=== PATIENT | male | born 1940 | race African-American/Black ===

== ENCOUNTER 2019-05-11 07:49 | Day surgery (SDC) | payer OTHER, BC ==
[2019-05-10 11:38] VITALS: BMI 33.5
[2019-05-11] MEDS ORDERED: ROCURONIUM BROMIDE 50 MG/5 ML SYRINGE ONE (08:13)
[2019-05-11] MEDS ORDERED: LIDOCAINE HCL/PF 2% SDV 5ML VIAL ONE (08:13)
[2019-05-11] MEDS ORDERED: DEXAMETHASONE SOD PHOSPHATE 4 MG/1 ML VIAL ONE (08:13)
[2019-05-11] MEDS ORDERED: EPHEDRINE SULFATE/0.9% NACL/PF 50 MG/10 ML SYRINGE NR ONE (08:13)
[2019-05-11] MEDS ORDERED: PROPOFOL 20 ML ONE (08:14)
[2019-05-11] MEDS ORDERED: MIDAZOLAM HCL 2 MG/2 ML SINGLE DOSE VIAL ONE ×3 (08:14→08:50)
[2019-05-11] MEDS ORDERED: SUCCINYLCHOLINE CHLORIDE 200 MG/10 ML SYRINGE ONE (08:14)
[2019-05-11] MEDS ORDERED: DEXAMETHASONE SOD PHOSPHATE/PF 10 MG/ML SDV ONE (08:17)
[2019-05-11] MEDS ORDERED: BUPIVACAINE HCL/PF 0.5% (5 MG/ML) 30 ML VIAL IJ ONE ×4 (08:18→09:33)
--- NOTE | 2019-05-11 09:02 | HP ---
Admitting History and Physical - Admission Chief Complaint: incisional hernia History of Present Illness: 78 y.o. male presents with incional bulge post robotic prostatectomy - Advance Directives Advance Directives: Yes: Health Care Proxy - Smoking History Smoking history: Former smoker Have you smoked in the past 12 months: No If you are a former smoker, when did you quit?: 1969"s - Alcohol/Substance Use Hx Alcohol Use: No Home Medications - Allergies Allergies/Adverse Reactions: Allergies Allergy/AdvReac Type Severity Reaction Status Date / Time No Known Allergies Allergy Verified 05/11/19 08:17 - Home Medications Home Medications: Ambulatory Orders Aspirin [ASA -] 81 mg PO DAILY 05/10/19 Chlorthalidone 25 mg PO DAILY 05/10/19 Glyburide/Metformin HCl [Glyburide-Metformin 5-500 mg] 1 each PO BID 05/10/19 Hydralazine HCl 25 mg PO BID 05/10/19 Isosorbide Mononitrate [Imdur -] 30 mg PO DAILY 05/10/19 Losartan Potassium 100 mg PO DAILY 05/10/19 Metoprolol Tartrate 25 mg PO DAILY 05/10/19 Rosuvastatin Calcium [Crestor] 10 mg PO HS 05/10/19 Review of Systems - Review of Systems Constitutional: reports: No Symptoms Physical Examination Vital Signs: Vital Signs Temperature 97.5 F L 05/11/19 08:10 Pulse Rate 54 L 05/11/19 08:10 Respiratory Rate 18 05/11/19 08:10 Blood Pressure 150/77 05/11/19 08:10 O2 Sat by Pulse Oximetry (%) 99 05/11/19 08:09 Constitutional: Yes: Well Nourished, No Distress HENT: Yes: Normocephalic Neck: Yes: Supple Cardiovascular: Yes: Regular Rate and Rhythm Respiratory: Yes: CTA Bilaterally Gastrointestinal: Yes: Soft, Other (5 cm umbilical port site bulge, partially reducible) Problem List - Problems (1) Incisional hernia of anterior abdominal wall with obstruction Assessment/Plan: Robotic incisional hernia repair with mesh Code(s): K43.0 - INCISIONAL HERNIA WITH OBSTRUCTION, WITHOUT GANGRENE
[2019-05-11] MEDS ORDERED: ceFAZolin SODIUM 1 GM VIAL ONE (09:27)
[2019-05-11] MEDS ORDERED: ceFAZolin SODIUM 1 GM VIAL IVPB ONE (09:30)
[2019-05-11] MEDS ORDERED: NEOSTIGMINE METHYLSULFATE 0.5 MG/ML - 10 ML MDV ONE (10:44)
[2019-05-11] MEDS ORDERED: GLYCOPYRROLATE 0.2 MG/1 ML VIAL ONE (10:44)
[2019-05-11] MEDS ORDERED: ONDANSETRON 4 MG/2 ML VIAL IVPUSH PRN (11:24)
--- NOTE | 2019-05-11 11:26 | OP ---
Operative Note - Note: Operative Date: 05/11/19 Pre-Operative Diagnosis: Incisional hernia Operation: Robotic incisional hernia repair with mesh Findings: 5 cm supraumbilical hernia with 2 satellite hernias ( 1 and 2 cm) Implants: Symbptex 15 x 10 cm mesh Surgeon: Steven Gleason Him Clerk: Deepa Coburn Anesthesia: General Estimated Blood Loss (mls): 3 Operative Report Dictated: Yes
[2019-05-11] MEDS ORDERED: LACTATED RINGERS SOLUTION 1,000 ML IV SCH (11:30)
--- NOTE | 2019-05-11 12:11 | SURG ---
Surgery Fluid Power Mechanic Note Fluid Power Mechanic: Deepa Coburn PA-C Date of Service: 05/11/19 Diagnosis: Incisional hernia Procedure: Robotic incisional hernia repair with mesh I was present for the entirety of the operative procedure. For further detail, please refer to operative report. Visit type - Case Type Case Type: Scheduled - Emergency Emergency Visit: No - New patient This patient is new to me today: Yes Date on this admission: 05/11/19
--- NOTE | 2019-05-11 12:32 | OP ---
DATE OF OPERATION: 05/11/2019 PROCEDURE: Robotic-assisted laparoscopic incisional hernia repair with mesh. PREOPERATIVE DIAGNOSIS: Incisional hernia. POSTOPERATIVE DIAGNOSIS: Incisional hernia. SURGEON: Steven Gleason MD BUTTONHOLER: SEAMUS Medel ANESTHESIA: General endotracheal. FINDINGS: This is a 78-year-old male who is status post robotic prostatectomy who developed an incisional hernia of the extraction site above the supraumbilical area. On physical exam, patient has a 5-cm partially reducible defect, which was mildly tender on palpation, so patient was advised repair of the hernia, and consent was obtained after discussing the risks, benefits, and alternatives of the procedure. PROCEDURE IN DETAIL: Patient was then brought to the operating room and placed in supine position. General endotracheal anesthesia was administered. A roll was placed under the patient's left flank, and both arms were tucked to the side support from the beanbag. The abdomen was prepped and draped in the usual sterile fashion. Using 0.5% Marcaine, local anesthesia was administered to the proposed incision sites. The peritoneal cavity was entered using the Veress needle technique via an 8-mm left subcostal incision using the Veress needle. Pneumoperitoneum was established. This was followed by insertion of an 8-mm blunt trocar. The 3D laparoscope was inserted, and the peritoneal cavity was carefully inspected and was noted to be free of any inadvertent injury. The 5-cm around incisional hernia was visualized and was noted to be empty. Another smaller hernia to the left was noted, which was about 2 cm in diameter. A 1-cm hernia was also noted to the right of the midline close to each other. Two 8-mm ports were inserted at the left flank 8 mm away from each other. Target organ was set. Robotic arms were docked, and the fenestrated bipolar forceps was inserted at the lower most port, and the Endo Anders were inserted at the left subcostal port. The undersigned then scrubbed out to commence the console part of the procedure. The hernia defect was closed with continuous V-Lock and absorbable No. 1 suture, and a 2-cm defect was also closed with 1 [id number] V-Lock No. 1 nonabsorbable suture. After the primary repair was done, a 10 x 15-cm Symbotex mesh was deployed and anchored to the posterior abdominal wall with running V-Lock 2-0 absorbable sutures. After the deployment was deemed satisfactory, the instruments were removed and the pneumoperitoneum was evacuated. The robotic arms were undocked, and the ports were removed. The wounds were closed with subcuticular Biosyn 4-0 sutures reinforced with Dermabond. An abdominal binder was also employed. The patient was successfully extubated and transferred to the post anesthesia care unit in satisfactory condition. Estimated blood loss was about 3 mL. Wound class, clean. The patient received 2 g of Ancef prior to the start of the procedure. Adela [id number]
[2019-05-11 14:08] VITALS: TEMP 97.6
[2019-05-11 16:30] VITALS: BP 160/70; PULSE 67
== END 2019-05-11 15:20 | disposition home or self-care (01) ==
LOC: JASU-SURG 07:49
PROVIDERS: ATTEND Surgery
PROC: 8E0W4CZ Robotic Assisted Procedure of Trunk Region, Percutaneous Endoscopic Approach (ICD-10-PCS; 2019-05-11)
PROC: 0WUF4JZ Supplement Abdominal Wall with Synthetic Substitute, Percutaneous Endoscopic Approach (ICD-10-PCS; principal; 2019-05-11 09:30)
DX: K43.2 Incisional hernia without obstruction or gangrene (principal)
CPT/HCPCS: 49654; S2900; 82962; 94760